=== PATIENT | female | born 1990 | race Caucasian/White ===

== ENCOUNTER 2017-08-20 06:11 | Inpatient (IN) | payer OTHER ==
[~2017-08-20] VITALS: Ht 160 cm; Wt 54.4 kg
[~2017-08-20 06:11] MED LIST: DOCUSATE SODIU100 M3 PO; IBUPROFEN800 M1 PO; PEPCID20 M1 PO; SERTRALINE HCL25 MG PO; ZOFRAN4 M2 SL
[2017-08-20] MEDS ORDERED: B-121000 MC3 PO (06:33)
--- NOTE | 2017-08-20 06:39 | ED GI/GU/ABDOMINAL COMPLAINT ---
History of Present Illness General Chief Complaint: General Adult Stated Complaint: "ABD PAIN, N+V+D" Source: patient Exam Limitations: no limitations Vital Signs & Intake/Output Vital Signs & Intake/Output Vital Signs Date Time Temp Pulse Resp B/P B/P Pulse O2 O2 Flow FiO2 Mean Ox Delivery Rate 08/20 1019 98.0 80 18 129/68 99 Room Air 08/20 0845 98.4 76 18 136/84 98 Room Air 08/20 0627 Room Air 08/20 0624 98.1 90 18 142/78 97 Room Air Allergies Coded Allergies: bee pollen (Severe, ANAPHYLAXIS 09/17/15) kiwi (Severe, ANAPHYLAXIS 09/17/15) Sulfa (Sulfonamide Antibiotics) (Intermediate, DIARRHEA 09/17/15) Reconcile Medications Cyanocobalamin (Vitamin B-12) (B-12) 1,000 MCG TABLET 1 TAB PO DAILY SUPPLEMENT (Reported) Triage Note: PT TO TRIAGE C/O N/V/D AND 11/28 STABBING DIFFUSE ABD PAIN X2 WEEKS. PT STATES HAS BEEN TAKING IMMODIUM WITH SOME EFFECT. LMP 07/30. Triage Nurses Notes Reviewed? yes ? n Is pt currently ? No Onset: Gradual Duration: day(s): Timing: recent history Quality/Severity: cramping Location: generalized abdomen Radiation: no radiation Activities at Onset: none Prior Abdominal Problems: similar symptoms Modifying Factors: Improves With: movement. Worsens With: palpation. Associated Symptoms: nausea/vomiting HPI: 27-[facility] with 2 week history of intermittent nausea vomiting abdominal pain and diarrhea. She states that the symptoms have gotten worse over the past week and last night she developed excessive vomiting and excessive watery diarrhea. (Guadalupe ARIAS,Yomi Devi) Past History Travel History Traveled to [place] past 21 day No Medical History Any Pertinent Medical History? 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 Yes (Guadalupe ARIAS,Yomi Devi) Review of Systems Review of Systems Constitutional: Reports: no symptoms. EENTM: Reports: no symptoms. Respiratory: Reports: no symptoms. Cardiovascular: Reports: no symptoms. GI: Reports: no symptoms. Genitourinary: Reports: no symptoms. Musculoskeletal: Reports: no symptoms. Skin: Reports: no symptoms. Neurological/Psychological: Reports: no symptoms. Hematologic/Endocrine: Reports: no symptoms. Immunologic/Allergic: Reports: no symptoms. All Other Systems: Reviewed and Negative (Guadalupe ARIAS,Yomi Devi) Physical Exam Physical Exam General Appearance: well developed/nourished, mild distress, moderate distress Head: atraumatic, normal appearance Eyes: Bilateral: normal appearance. Ears, Nose, Throat, Mouth: hearing grossly normal, moist mucous membrane Neck: normal inspection, supple, full range of motion, normal alignment Respiratory: normal breath sounds, chest non-tender, no respiratory distress Cardiovascular: regular rate/rhythm Gastrointestinal: normal bowel sounds, soft, diffuse tenderness Pelvic: normal external exam, normal speculum exam, normal bimanual exam Back: normal inspection, normal range of motion Extremities: normal range of motion Core Measures ACS in differential dx? No Sepsis Present: No Sepsis Focused Exam Completed? No (Guadalupe ARIAS,Yomi Devi) Progress Differential Diagnosis: abdominal pain, ovarian cysts, crohn's disease Plan of Care: Orders Procedure Date/time Status Nothing by Mouth 08/20 L Active Patient Data 08/20 1034 Active OXYGEN SETUP (GEN) 08/20 1016 Active Saline Lock 08/[address] in observation 08/20 1016 Active Vital Signs 08/20 1016 Active Activity/Ambulation 08/20 1016 Active Code Status 08/20 1016 Active URINALYSIS 08/20 0647 Complete LIPASE 08/20 0647 Complete HEPATIC FUNCTION PANEL 08/20 0647 Complete HUMAN BETA HCG SCREEN 08/20 0647 Complete CBC WITHOUT DIFFERENTIAL 08/20 0647 Complete BASIC METABOLIC PANEL 08/20 0647 Complete AMYLASE 08/20 0647 Complete Current Medications Sig/Vale Start time Last Medication Dose Stop Time Status Admin Lorazepam 1 MG ONCE ONE 08/20 1045 UNVr (Ativan) 08/20 1046 Morphine Sulfate 4 MG ONCE ONE 08/20 1045 UNVr (Morphine) 08/20 1046 Sodium Chloride 1,000 ML BOLUS ONE 08/20 1015 UNVr 08/20 (Normal Saline 0.9%) 08/20 1114 1019 Laboratory Tests 08/20/17 0649: Anion Gap 17 H, Estimated GFR > 60, BUN/Creatinine Ratio 20.0, Glucose 110 H, Calcium 9.4, Total Bilirubin 2.5 H, Direct Bilirubin 0.2, AST 19, ALT 16, Alkaline Phosphatase 70, Total Protein 8.0, Albumin 4.6, Amylase 91, Lipase 156, Total Beta HCG NEGATIVE, CBC w Diff NO MAN DIFF REQ, RBC 4.99, MCV 85.6, MCH 29.3, MCHC 34.2, RDW 12.8, MPV 7.9, Gran % 64.8, Lymphocytes % 25.2, Monocytes % 7.8, Eosinophils % 1.2, Basophils % 1.0, Absolute Granulocytes 5.1, Absolute Lymphocytes 2.0, Absolute Monocytes 0.6, Absolute Eosinophils 0.1, Absolute Basophils 0.1, Urine Color YEL, Urine Clarity CLEAR, Urine pH 6.0, Ur Specific [place] 1.015, Urine Protein NEG, Urine Ketones NEG, Urine Nitrite NEG, Urine Bilirubin NEG, Urine Urobilinogen 0.2, Ur Leukocyte Esterase SMALL H, Ur Microscopic SEDIMENT EXAMINED, Urine RBC RARE, Urine WBC 3-5 H, Ur Epithelial Cells MANY H, Urine Bacteria MANY H, Urine Mucus RARE, Urine Hemoglobin NEG, Urine Glucose NEG 08/20/17 0646: Urine Color Cancelled, Urine Clarity Cancelled, Urine pH Cancelled, Ur Specific [place] Cancelled, Urine Protein Cancelled, Urine Ketones Cancelled, Urine Nitrite Cancelled, Urine Bilirubin Cancelled, Urine Urobilinogen Cancelled, Ur Leukocyte Esterase Cancelled, Ur Microscopic Cancelled, Urine Hemoglobin Cancelled, Urine Glucose Cancelled Initial ED EKG: none Hand-Off Endorsed To: Art Song MD Endorsed Time: 0700 Pending: CT, labs, other (CLINICAL RESPONE ) (Guadalupe ARIAS,Yomi Devi) Diagnostic Imaging: Viewed by Me: CT Scan. Discussed w/RAD: CT Scan. Radiology Impression: 1. No inflammatory changes seen in abdomen or pelvis. No obstruction or ascites or fluid collection. 2. No biliary ductal dilatation. No hydronephrosis. 3. Bilateral sclerosis on the iliac side of the anterior sacroiliac joints. There is no sclerosis on the sacral side or erosive changes. 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 Comments: Updated with results of diagnostics. Pain recurred and patient became tearful no significant pathology is evident. Complains of nausea without vomiting, periumbilical abdominal discomfort with frequent loose watery stools over the last 2 weeks. No response to interventions, still complains of periumbilical pain. (Art Song MD) Departure Departure Time of Disposition: 0700 Disposition: STILL A PATIENT Condition: Stable Referrals: Umer ARIAS,Arnol Alonso (PCP/Family) Departure Forms: Customer Survey General Discharge Information (Yomi Butcher MD) Departure Clinical Impression Primary Impression: Intractable lower abdominal pain Secondary Impressions: Diarrhea Observation Note Spoke With: Radha ARIAS,Rome Alonso Physician Advisor Notified: RAJEEV ERNANDEZ DO Place Patient In: Non-ED OBS Care Area Rationale for Observation: My rational for observation is as follows intractable abdominal pain not responsive to multiple interventions requiring serial lab exam medication adjustment GI consultation continuing care discharge planning. (Art Song MD) Critical Care Note Critical Care Note Critical Care Time: 30-74 min (35) (Art Song MD) ED Attending Observation Initial Observation Note: I have seen and personally examined ARTURO FAULKNER on 08/20/17 at 0656. I agree with the current emergency department documentation. The disposition (admission or discharge) is uncertain at this time, she needs a period of observation for the following reason(s): The ED Nurse caring for this patient has been personally informed as to what the patient is being observed for. (Yomi Butcher MD)
[2017-08-20 07:09] LABS: ABSOLUTE BASOPHIL COUNT 0.1 /CUMM (0.0-0.2); ABSOLUTE EOSINOPHIL COUNT 0.1 /CUMM (0.0-0.7); ABSOLUTE GRANULOCYTE CT 5.1 /CUMM (1.4-6.5); ABSOLUTE MONOCYTE COUNT 0.6 /CUMM (0.10-0.60); EOSINOPHIL % 1.2 % (0-5); GRANULOCYTE % 64.8 % (42.2-75.2); HEMATOCRIT 42.7 % (37-47); MEAN CORPUSCULAR HGB 29.3 PG (27.0-31.0); MEAN CORPUSCULAR HGB CONC 34.2 G/DL (33.0-37.0); MEAN CORPUSCULAR VOLUME 85.6 FL (81.0-99.0); MEAN PLATELET VOLUME 7.9 FL (7.4-10.4); PLATELET COUNT 367 /CUMM (130-400); RBC DISTRIBUTION WIDTH 12.8 % (11.5-14.5); RED BLOOD CELL CT 4.99 /CUMM (4.20-5.40); WHITE BLOOD CELL COUNT 7.8 /CUMM (4.8-10.8)
--- NOTE | 2017-08-20 08:32 | CT SCAN REPORT ---
EXAMINATION: CT ABDOMEN AND PELVIS WITHOUT CONTRAST CLINICAL INFORMATION: Diffuse abdominal pain. Family history Crohn's. COMPARISON: CT abdomen and pelvis with IV contrast 05/31/2011 TECHNIQUE: Multidetector volumetric imaging was performed from the superior aspect of the liver through the pubic symphysis. Sagittal and coronal reformatted images were obtained on the technologist's workstation. No oral or IV contrast. DLP: 256 mGy-cm FINDINGS: LUNG BASES: Small stable benign pleural-based nodule again noted left posterior lateral base LIVER, GALLBLADDER, AND BILIARY TREE: The liver is within limits of normal size and smooth in contour and normal in attenuation. There is no focal hepatic parenchymal lesion or intrahepatic biliary ductal dilatation. The gallbladder is unremarkable with no evidence of radiopaque gallstones, gallbladder wall thickening, or obvious pericholecystic inflammatory changes. PANCREAS: Unremarkable. SPLEEN: Unremarkable. ADRENAL GLANDS: Unremarkable. KIDNEYS AND URETERS: The kidneys are normal in size, shape, and attenuation. No hydronephrosis, hydroureter, or calculi seen. No perinephric stranding. BLADDER: Unremarkable. GASTROINTESTINAL TRACT: There is no bowel obstruction or inflammatory changes seen in the bowel or mesentery. The appendix is not visualized with certainty. There are no inflammatory changes seen around the cecum or involving the terminal ileum. There is no ascites or fluid collection. ABDOMINAL WALL: No significant hernia is appreciated. LYMPH NODES: No lymphadenopathy. VASCULAR: Unremarkable. PELVIC VISCERA: Uterus measures approximately 4 x 6 x 9 cm. There is no adnexal mass or pelvic ascites. OSSEOUS STRUCTURES: There is bilateral sclerosis on the iliac side of the anterior sacroiliac joints. There is no sclerosis on the sacral side or erosive changes. IMPRESSION: 1. No inflammatory changes seen in abdomen or pelvis. No obstruction or ascites or fluid collection. 2. No biliary ductal dilatation. No hydronephrosis. 3. Bilateral sclerosis on the iliac side of the anterior sacroiliac joints. There is no sclerosis on the sacral side or erosive changes. 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
--- NOTE | 2017-08-20 11:57 | History & Physical ---
Anjana Perez 08/20/17 1157: General Information and HPI MD Statement: I have seen and personally examined ARTURO FAULKNER and documented this H&P. The patient is a 27 year old F who presented with a patient stated chief complaint of [DIARRHEA]. Source of Information: patient, family Exam Limitations: no limitations History of Present Illness: Patient is 27-year-old with no past medical history except anemia, came with the chief complaint of recurrent diarrhea. Patient states that her stomach has always been 'SENSITIVE' and since past 2 weeks she has been having recurrent watery diarrhea. She reports to having 4-6 episodes of loose stools accompanied by abdominal pain. Initially her stools were black in color and later have turned brownish green. She reports that her abdominal cramps is diffused and worse in the lower abdomen with frequent stabbing sensations. At worst she describes her pain as 9/10. Patient has taken [id number] Imodium and Pepto-Bismol with no relief. She has taken [id number] ibuprofen for abdominal pain. Patient does not follow-up with any casting director. Patient has also been vomiting since the onset of the symptoms. Initially she used to vomit up to 5 times a day which is improved. Last night patient ate a beef steak with hash brown, and since then her diarrhea worsened and she decided to come to ER. Of note, patient has a family history significant for Crohn's disease. Patient' s maternal aunt and first cousin have Crohn's disease. Patient reports of subjective fevers at home, and denies any infectious etiology of her abdominal pain/diarrhea such as no sick contacts, no outside food. Review of systems is positive for palpitations, chest pain and dizziness. Quit 3 weeks ago, ETOH yesterday 2 glasses of shayy/wine. 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 Ambulation: independent IADLs Independent: shopping, housework, finances, food prep, telephone, transportation , medication admin. Review of Systems Review of Systems Constitutional: Reports: see HPI. Exam & Diagnostic Data Last 24 Hrs of Vital Signs/I&O Vital Signs Date Time Temp Pulse Resp B/P B/P Pulse O2 O2 Flow FiO2 Mean Ox Delivery Rate 08/20 1019 98.0 80 18 129/68 99 Room Air 08/20 0845 98.4 76 18 136/84 98 Room Air 08/20 0627 Room Air 08/20 0624 98.1 90 18 142/78 97 Room Air Intake & Output 08/20 1600 08/20 0800 08/20 0000 Intake Total 1000 Output Total Balance 1000 Intake, IV 1000 Physical Exam General Appearance Alert, Oriented X3, Cooperative, Mild Distress Skin No Rashes, No Breakdown HEENT Atraumatic, PERRLA Neck Supple, No JVD Cardiovascular Normal S1, Normal S2 Lungs Clear to Auscultation, Normal Air Movement Abdomen Soft, diffusly tender Neurological Normal Speech, Normal Tone Extremities No Edema Last 24 Hrs of Labs/Sammy: Laboratory Tests 08/20/17 0649: Anion Gap 17 H, Estimated GFR > 60, BUN/Creatinine Ratio 20.0, Glucose 110 H, Calcium 9.4, Total Bilirubin 2.5 H, Direct Bilirubin 0.2, AST 19, ALT 16, Alkaline Phosphatase 70, Troponin I < 0.01, Total Protein 8.0, Albumin 4.6, Amylase 91, Lipase 156, Total Beta HCG NEGATIVE, CBC w Diff NO MAN DIFF REQ, RBC 4.99, MCV 85.6, MCH 29.3, MCHC 34.2, RDW 12.8, MPV 7.9, Gran % 64.8, Lymphocytes % 25.2, Monocytes % 7.8, Eosinophils % 1.2, Basophils % 1.0, Absolute Granulocytes 5.1, Absolute Lymphocytes 2.0, Absolute Monocytes 0.6, Absolute Eosinophils 0.1, Absolute Basophils 0.1, Urine Color YEL, Urine Clarity CLEAR, Urine pH 6.0, Ur Specific [place] 1.015, Urine Protein NEG, Urine Ketones NEG, Urine Nitrite NEG, Urine Bilirubin NEG, Urine Urobilinogen 0.2, Ur Leukocyte Esterase SMALL H, Ur Microscopic SEDIMENT EXAMINED, Urine RBC RARE, Urine WBC 3 -5 H, Ur Epithelial Cells MANY H, Urine Bacteria MANY H, Urine Mucus RARE, Urine Hemoglobin NEG, Urine Glucose NEG 08/20/17 0646: Urine Color Cancelled, Urine Clarity Cancelled, Urine pH Cancelled, Ur Specific [place] Cancelled, Urine Protein Cancelled, Urine Ketones Cancelled, Urine Nitrite Cancelled, Urine Bilirubin Cancelled, Urine Urobilinogen Cancelled, Ur Leukocyte Esterase Cancelled, Ur Microscopic Cancelled, Urine Hemoglobin Cancelled, Urine Glucose Cancelled Microbiology 08/20 1305 BLOOD: Blood Culture - RECD 08/20 1250 BLOOD: Blood Culture - RECD 08/20 1152 STOOL: Cryptosporidium Antigen - COLB 08/20 115 STOOL: Giardia Antigen (SAMMY) - COLB 08/20 115 STOOL: Clostridium difficile Toxin A & B - COLB 08/20 115 STOOL: Vibrio Culture - COLB 08/20 115 STOOL: Stool Culture - COLB Assessment/Plan Assessment: 27-year-old female who came in with chief complaint of recurrent diarrhea. Her family history significant for Crohn's disease. She denies any infectious etiology of her symptoms. Labs and vitals as above Abdominal CAT scan 1. No inflammatory changes seen in abdomen or pelvis. No obstruction or ascites or fluid collection. 2. No biliary ductal dilatation. No hydronephrosis. 3. Bilateral sclerosis on the iliac side of the anterior sacroiliac joints. There is no sclerosis on the sacral side or erosive changes. 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 Assessment and plan We will admit her to general medicine floor, start IV fluids and monitor closely. Will follow casting director recommendations. For recurrent diarrhea, with obtain stool culture, ova and parasite, C. difficile, although she denies any antibiotic use in the past 10 days. We will also obtain blood cultures given her subjective fevers and body chills. For nausea will give Tigan, for abdominal discomfort with put her on pain regimen with Tylenol. Toradol and dicyclomine. DVT prophylaxis subcutaneous Lovenox We will repeat CBC in BP tomorrow Patient is full code As Ranked By This Provider Problem List: 1. Diarrhea Core Measures/Misc (12/05) Acute Coronary Syndrome ACS Diagnosis: No Congestive Heart Failure Congestive Heart Failure Diagnosis No Cerebrovascular Accident CVA/TIA Diagnosis: No VTE (View Protocol) VTE Risk Factors No risk factors No Mechanical VTE Prophylaxis d/t N/A MechProphylax Ordered No VTE Pharm Prophylaxis d/t NA PharmProphylax ordered Sepsis (View protocol) Sepsis Present: No If YES complete Sepsis Event Note If YES complete Sepsis Event Note Rome Garcia 08/20/17 1453: General Information and HPI Allergies/Medications Home Med list Cyanocobalamin (Vitamin B-12) (B-12) 1,000 MCG TABLET 1 TAB PO DAILY SUPPLEMENT (Reported) Dicyclomine HCl 10 MG CAPSULE 1 CAP PO Q6P PRN STOMACH CRAMPS Core Measures/Misc (12/05) Sepsis (View protocol) If YES complete Sepsis Event Note If YES complete Sepsis Event Note Attending MD Review Statement Attending Statement Attending MD Statement: examined this patient, discuss w/resident/PA/METER TESTER, agreed w/resident/PA/METER TESTER, discussed with family, reviewed EMR data (avail), discussed with nursing Attending Assessment/Plan: 27 yr old female with no significant pmh being placed in observation for chronic diarrhea over the last 3 months with abdominal cramps . Her diarrhea has worsened over the last 2 weeks and prompted her to come to the ER for evaluation. In ER she had a CT scan done which showed- " No inflammatory changes seen in abdomen or pelvis. No obstruction or ascites or fluid collection." Pt says she is having 4-5 episdoes of diarrhea in the day which is loose and with abdominal cramping. Also associated nausea for 2 weeks and vomiting over the last day or so. Non bloody diarrhea and non bloody vomiting . No recent travel outside the country. No abx exposure. No sick contact. Does not eat uncooked meats. Was taking peptobismol and imodium but did not help. Has FH of crohns in cousin and maternal aunt. Plan- IV fluids. stool culture and stool for O & P, IV fluids, Stool for c diff, will get GI consult. D/w Dr Sarabia the case. d/w pt and family at bedside the care plan. Started on dicyclomine and will give prn pain meds. with nursing Attending Assessment/Plan: 27 yr old female with no significant pmh being placed in observation for chronic diarrhea over the last 3 months with abdominal cramps . Her diarrhea has worsened over the last 2 weeks and prompted her to come to the ER for evaluation. In ER she had a CT scan done which showed- " No inflammatory changes seen in abdomen or pelvis. No obstruction or ascites or fluid collection." Pt says she is having 4-5 episdoes of diarrhea in the day which is loose and with abdominal cramping. Also associated nausea for 2 weeks and vomiting over the last day or so. Non bloody diarrhea and non bloody vomiting . No recent travel outside the country. No abx exposure. No sick contact. Does not eat uncooked meats. Was taking peptobismol and imodium but did not help. Has FH of crohns in cousin and maternal aunt. Plan- IV fluids. stool culture and stool for O & P, IV fluids, Stool for c diff, will get GI consult. D/w Dr Sarabia the case. d/w pt and family at bedside the care plan. Started on dicyclomine and will give prn pain meds.
[2017-08-20 14:40] VITALS: BP 130/68
--- NOTE | 2017-08-20 22:17 | Cons- Gastroenterology ---
General Information and HPI Consulting Request Date of Consult: 08/20/17 Requested By: Rome Garcia MD Reason for Consult: Diarrhea, abdominal pain Allergies/Medications Allergies: Coded Allergies: bee pollen (Severe, ANAPHYLAXIS 09/17/15) kiwi (Severe, ANAPHYLAXIS 09/17/15) Sulfa (Sulfonamide Antibiotics) (Intermediate, DIARRHEA 09/17/15) Home Med List: Cyanocobalamin (Vitamin B-12) (B-12) 1,000 MCG TABLET 1 TAB PO DAILY SUPPLEMENT (Reported) Current Medications: Current Medications Sig/Vale Start time Last Medication Dose Route Stop Time Status Admin Acetaminophen 650 MG Q8P PRN 08/20 1300 AC 08/20 PO 2021 Acetaminophen 0 .STK-MED ONE 08/20 0701 DC IV Acetaminophen 1,000 MG ONCE ONE 08/20 0645 DC 08/20 N/A 1 UNIT IV 08/20 0659 0701 Belladonna Alkaloids/ 1 TAB Q4 HRS NEEDED PRN 08/20 2200 AC Phenobarbital PO Dicyclomine HCl 20 MG 4 TIMES/DAY 08/20 1345 DC 08/20 PO 1907 Diphenoxylate HCl/ 2.5 MG ONCE ONE 08/20 0915 DC 08/20 Atropine PO 08/20 0916 0923 Enoxaparin Sodium 40 MG DAILY 08/21 0900 AC SC Famotidine 0 .STK-MED ONE 08/20 0702 DC IV Famotidine 20 MG ONCE ONE 08/20 0700 DC 08/20 IV 08/20 0701 0701 Hyoscyamine 0.125 MG ONCE ONE 08/20 0915 DC 08/20 SL 08/20 0916 0923 Ketorolac 30 MG Q8P PRN 08/20 1400 AC 08/20 Tromethamine IV 2108 Ketorolac 30 MG Q8P PRN 08/20 1300 DC Tromethamine IM Ketorolac 0 .STK-MED ONE 08/20 0701 DC Tromethamine .ROUTE Ketorolac 30 MG ONCE ONE 08/20 0645 DC 08/20 Tromethamine IV 08/20 0646 0701 Lorazepam 0.5 MG ONCE ONE 08/20 2100 DC 08/20 IV 08/20 2101 2109 Lorazepam 0.5 MG ONE ONE 08/20 1500 DC 08/20 PO 08/20 1501 1558 Lorazepam 0 .STK-MED ONE 08/20 1047 DC .ROUTE Lorazepam 1 MG ONCE ONE 08/20 1045 DC / IV 08/20 1046 1043 Lorazepam 0 .STK-MED ONE 08/20 0919 DC .ROUTE Lorazepam 1 MG ONCE ONE 08/20 0915 DC / IV 08/20 0916 0919 Melatonin 5 MG AT BEDTIME NEED.. 08/20 2100 AC 08/20 PO 2108 Metoclopramide HCl 0 .STK-MED ONE 08/20 0920 DC .ROUTE Metoclopramide HCl 10 MG ONCE ONE 08/20 0915 DC / IV 08/20 0916 0919 Morphine Sulfate 0 .STK-MED ONE 08/20 1047 DC .ROUTE Morphine Sulfate 4 MG ONCE ONE 08/20 1045 DC / IV 08/20 1046 1043 Morphine Sulfate 4 MG ONCE ONE 08/20 0845 DC / IV 08/20 0846 0843 Morphine Sulfate 0 .STK-MED ONE 08/20 0839 DC .ROUTE Ondansetron HCl 0 .STK-MED ONE 08/20 0701 DC .ROUTE Ondansetron HCl 4 MG ONCE ONE 08/20 0700 DC 06/ IV 06/ 0701 0701 Sodium Chloride 1,000 ML Q10H 08/20 1245 AC 06/ IV 1349 Sodium Chloride 1,000 ML BOLUS ONE 08/20 1015 DC 06/ IV 06/ 1114 1019 Sodium Chloride 1,000 ML BOLUS ONE 08/20 0700 DC 06/ IV / 0759 0656 Trimethobenzamide HCl 200 MG 4 TIMES/DAY PRN 08/20 1245 AC IM Past History Travel History Traveled to [place] past 21 day No Medical History Blood Transfusion Hx: No Neurological: NONE EENT: NONE Cardiovascular: NONE Respiratory: NONE Gastrointestinal: NONE Hepatic: NONE Renal: NONE Musculoskeletal: NONE Psychiatric: NONE Endocrine: NONE Blood Disorders: anemia Cancer(s): NONE ADMISSIONS ASSISTANT/Reproductive: NONE Surgical History Surgical History: ovarian cyst Psychosocial History Smoking Status: Never Smoked ETOH Use: occasional use Functional Ability ADLs Independent: dressing, eating, toileting, bathing. Ambulation: independent IADLs Independent: shopping, housework, finances, food prep, telephone, transportation , medication admin. Exam & Diagnostic Data Vital Signs and I&O Vital Signs Date Time Temp Pulse Resp B/P B/P Pulse O2 O2 Flow FiO2 Mean Ox Delivery Rate 08/20 1440 98.4 76 20 130/68 98 08/20 1400 98 Room Air 08/20 1306 98.6 85 18 126/88 98 Room Air 08/20 1019 98.0 80 18 129/68 99 Room Air 08/20 0845 98.4 76 18 136/84 98 Room Air 08/20 0627 Room Air 08/20 0624 98.1 90 18 142/78 97 Room Air Intake & Output 08/20 04008/19 04008/18 040 Intake Total 1100 Output Total Balance 1100 Intake, IV 1100 Intake, Oral 0 Number 0 Bowel Movements Patient 120 lb Weight Physical Exam: Alert and oriented, normal cognition. Appears comfortable, in no distress. Skin warm and dry without lesion, rash, jaundice or stigmata of chronic liver disease. No adenopathy. Sclera anicteric. Oropharynx normal. Neck supple without thyromegaly or mass. Heart regular rhythm. Lungs clear. Abdomen is mildly distended and slightly tympanitic, with hyperactive bowel sounds; there is very mild diffuse tenderness, most pronounced in the left lower quadrant. There is no masses, fullness, organomegaly. Extremities without clubbing, cyanosis or edema, and with normal distal pulses. Results Pertinent Lab Results: Laboratory Tests 08/20 08/20 0649 0646 Chemistry Sodium (137 - 145 mmol/L) 142 Potassium (3.5 - 5.1 mmol/L) 4.6 Chloride (98 - 107 mmol/L) 105 Carbon Dioxide (22 - 30 mmol/L) 21 L Anion Gap (5 - 16) 17 H BUN (7 - 17 mg/dL) 14 Creatinine (0.5 - 1.0 mg/dL) 0.7 Estimated GFR (>60 ml/min) > 60 BUN/Creatinine Ratio (7 - 25 %) 20.0 Glucose (65 - 99 mg/dL) 110 H Calcium (8.4 - 10.2 mg/dL) 9.4 Total Bilirubin (0.2 - 1.3 mg/dL) 2.5 H Direct Bilirubin (< 0.4 mg/dL) 0.2 AST (14 - 36 U/L) 19 ALT (9 - 52 U/L) 16 Alkaline Phosphatase (<127 U/L) 70 Troponin I (< 0.11 ng/ml) < 0.01 Total Protein (6.3 - 8.2 g/dL) 8.0 Albumin (3.5 - 5.0 g/dL) 4.6 Amylase (30 - 110 U/L) 91 Lipase (23 - 300 U/L) 156 Total Beta HCG (NEGATIVE) NEGATIVE Hematology CBC w Diff NO MAN DIFF REQ WBC (4.8 - 10.8 /CUMM) 7.8 RBC (4.20 - 5.40 /CUMM) 4.99 Hgb (12.0 - 16.0 G/DL) 14.6 Hct (37 - 47 %) 42.7 MCV (81.0 - 99.0 FL) 85.6 MCH (27.0 - 31.0 PG) 29.3 MCHC (33.0 - 37.0 G/DL) 34.2 RDW (11.5 - 14.5 %) 12.8 Plt Count (130 - 400 /CUMM) 367 MPV (7.4 - 10.4 FL) 7.9 Gran % (42.2 - 75.2 %) 64.8 Lymphocytes % (20.5 - 51.1 %) 25.2 Monocytes % (1.7 - 9.3 %) 7.8 Eosinophils % (0 - 5 %) 1.2 Basophils % (0.0 - 2.0 %) 1.0 Absolute Granulocytes (1.4 - 6.5 /CUMM) 5.1 Absolute Lymphocytes (1.2 - 3.4 /CUMM) 2.0 Absolute Monocytes (0.10 - 0.60 /CUMM) 0.6 Absolute Eosinophils (0.0 - 0.7 /CUMM) 0.1 Absolute Basophils (0.0 - 0.2 /CUMM) 0.1 Urines Urine Color (YEL,AMB,STR) YEL Cancelled Urine Clarity (CLEAR) CLEAR Cancelled Urine pH (5.0 - 8.0) 6.0 Cancelled Ur Specific [place] (1.001 - 1.035) 1.015 Cancelled Urine Protein (NEG,<30 MG/DL) NEG Cancelled Urine Ketones (NEG) NEG Cancelled Urine Nitrite (NEG) NEG Cancelled Urine Bilirubin (NEG) NEG Cancelled Urine Urobilinogen (0.1 - 1.0 EU/dl) 0.2 Cancelled Ur Leukocyte Esterase (NEG) SMALL H Cancelled Ur Microscopic SEDIMENT EXAMINED Cancelled Urine RBC (0 - 5 /HPF) RARE Urine WBC (0 - 2 /HPF) 3-5 H Ur Epithelial Cells (NONE,FEW) MANY H Urine Bacteria (NEG/NONE) MANY H Urine Mucus (FEW,NONE) RARE Urine Hemoglobin (NEG) NEG Cancelled Urine Glucose (N MG/DL) NEG Cancelled Assessment/Plan Assessment/Recommendations: Acute diarrheal disorder including pain and nausea. This is superimposed on a more chronic, milder recurrent pain/diarrhea. The differential diagnosis includes irritable bowel syndrome with exacerbation (possible infection), and inflammatory bowel disease. Recommendations * Stool culture, vibrio, Yersinia, C. difficile toxin, lactoferrin * Check sedimentation rate, C-reactive protein, B12 * Clear liquid diet * 1 tab by mouth every 4 hours * Judicious use of narcotics for breakthrough pain * Serial abdominal examinations * Abdominal x-ray with worsening distention * Probable colonoscopy after the weekend Copies To: Umer ARIAS,Arnol Alonso Consult Acknowledgment - Thank you for your consult request.
[2017-08-20 22:20] VITALS: BP 113/77
[2017-08-21 06:54] VITALS: BP 103/72
[2017-08-21 08:16] LABS: ABSOLUTE BASOPHIL COUNT 0.1 /CUMM (0.0-0.2); ABSOLUTE EOSINOPHIL COUNT 0.4 /CUMM (0.0-0.7); ABSOLUTE GRANULOCYTE CT 2.7 /CUMM (1.4-6.5); ABSOLUTE LYMPH COUNT 2.8 /CUMM (1.2-3.4); ABSOLUTE MONOCYTE COUNT 0.5 /CUMM (0.10-0.60); EOSINOPHIL % 6.1 % (0-5); GRANULOCYTE % 41.5 % (42.2-75.2); MEAN CORPUSCULAR HGB 29.9 PG (27.0-31.0); MEAN CORPUSCULAR HGB CONC 34.7 G/DL (33.0-37.0); MEAN CORPUSCULAR VOLUME 86.2 FL (81.0-99.0); MEAN PLATELET VOLUME 7.7 FL (7.4-10.4); PLATELET COUNT 240 /CUMM (130-400); RBC DISTRIBUTION WIDTH 12.8 % (11.5-14.5); RED BLOOD CELL CT 3.95 /CUMM (4.20-5.40); WHITE BLOOD CELL COUNT 6.4 /CUMM (4.8-10.8)
--- NOTE | 2017-08-21 08:26 | PN- Housestaff ---
See Addendum Subjective Follow-up For: Recurrent diarrhea Nausea Abdominal pain and distention Subjective: Patient seen and examined. She feels much better today but says that she has been feeling restless. She only had 2 episodes of diarrhea since her admission to the hospital. Her abdomen looks less distended. Her nausea has improved. Patient was evaluated by GI yesterday, if her abdominal pain/distention worsens, can get abdominal x-ray. Review of Systems Constitutional: Reports: see HPI. Objective Last 24 Hrs of Vital Signs/I&O Vital Signs Date Time Temp Pulse Resp B/P B/P Pulse O2 O2 Flow FiO2 Mean Ox Delivery Rate 08/21 0654 98.7 86 18 103/72 98 Room Air 08/20 2220 98.3 83 18 113/77 100 Room Air 08/20 1440 98.4 76 20 130/68 98 / 1400 98 Room Air / 1306 98.6 85 18 126/88 98 Room Air 08/20 1019 98.0 80 18 129/68 99 Room Air Intake & Output 08/21 1600 08/21 0800 08/21 0000 Intake Total 840 300 Output Total Balance 840 300 Intake, IV 600 300 Intake, Oral 240 0 Number 1 0 Bowel Movements Physical Exam General Appearance: Alert, Oriented X3, Cooperative, Mild Distress Skin: No Rashes Skin Temp/Moisture Exam: Warm/Dry HEENT: Atraumatic Neck: Supple Cardiovascular: Normal S1, Normal S2 Lungs: Clear to Auscultation, Normal Air Movement Abdomen: Soft, No Tenderness Extremities: No Edema Current Medications: Current Medications Sig/Vale Start time Last Medication Dose Route Stop Time Status Admin Acetaminophen 650 MG Q8P PRN 08/20 1300 AC 08/20 PO 2021 Belladonna Alkaloids/ 1 TAB Q4 HRS NEEDED PRN 08/20 2200 AC 08/21 Phenobarbital PO 0350 Dicyclomine HCl 20 MG 4 TIMES/DAY 08/20 1345 DC 08/20 PO 1907 Diphenoxylate HCl/ 2.5 MG ONCE ONE 08/20 0815 DC 08/20 Atropine PO 08/21 915 0923 Enoxaparin Sodium 40 MG DAILY 08/21 0900 AC 08/21 SC 0823 Hyoscyamine 0.125 MG ONCE ONE 08/20 0815 DC 08/20 SL 06/02 0916 0923 Ketorolac 30 MG Q8P PRN 08/20 1400 AC 08/21 Tromethamine IV 0823 Ketorolac 30 MG Q8P PRN 08/20 1300 DC Tromethamine IM Lorazepam 0.5 MG ONCE ONE 08/20 2100 DC 08/20 IV 08/20 2101 2109 Lorazepam 0.5 MG ONE ONE 08/20 1500 DC 08/20 PO 08/20 1501 1558 Lorazepam 0 .STK-MED ONE 08/20 1047 DC .ROUTE Lorazepam 1 MG ONCE ONE 08/20 1045 DC 08/20 IV 08/20 1046 1043 Lorazepam 0 .STK-MED ONE 08/20 0919 DC .ROUTE Lorazepam 1 MG ONCE ONE 08/20 0915 DC 08/20 IV 08/20 0916 0919 Melatonin 5 MG AT BEDTIME NEED.. 08/20 2100 AC 08/20 PO 2108 Metoclopramide HCl 0 .STK-MED ONE 08/20 0920 DC .ROUTE Metoclopramide HCl 10 MG ONCE ONE 08/20 0915 DC 08/20 IV 08/20 0916 0919 Morphine Sulfate 0 .STK-MED ONE 08/20 1047 DC .ROUTE Morphine Sulfate 4 MG ONCE ONE 08/20 1045 DC 08/20 IV 08/20 1046 1043 Sodium Chloride 1,000 ML Q10H 08/20 1245 AC 08/20 IV 2343 Sodium Chloride 1,000 ML BOLUS ONE 08/20 1015 DC 08/20 IV 08/20 1114 1019 Trimethobenzamide HCl 200 MG 4 TIMES/DAY PRN 08/20 1245 AC 08/21 IM 0823 Last 24 Hrs of Lab/Sammy Results Last 24 Hrs of Labs/Mics: Laboratory Tests 08/21/17 0744: Anion Gap 5, Estimated GFR > 60, BUN/Creatinine Ratio 14.3, Total Bilirubin 2.3 H, Direct Bilirubin 0, AST 36, ALT 37, Alkaline Phosphatase 46, C-React Prot High Sens Pending, Total Protein 5.6 L, Albumin 3.1 L, Vitamin B12 Pending, CBC w Diff NO MAN DIFF REQ, RBC 3.95 L, MCV 86.2, MCH 29.9, MCHC 34.7, RDW 12.8 , MPV 7.7, Gran % 41.5 L, Lymphocytes % 43.7, Monocytes % 7.7, Eosinophils % 6.1 H, Basophils % 1.0, Absolute Granulocytes 2.7, Absolute Lymphocytes 2.8, Absolute Monocytes 0.5, Absolute Eosinophils 0.4, Absolute Basophils 0.1, ESR Westergren Pending Microbiology 08/21 329 STOOL: Yersinia Culture - CAN Cancelled: MERGED 08/21 329 STOOL: Cryptosporidium Antigen - COLB 08/21 329 STOOL: Giardia Antigen (SAMMY) - COLB 08/21 329 STOOL: Clostridium difficile Toxin A & B - RECD 08/21 329 STOOL: Vibrio Culture - RECD 08/21 329 STOOL: Yersinia Culture - RECD 08/21 329 STOOL: Stool Culture - RECD 08/20 1305 BLOOD: Blood Culture - RECD 08/20 1250 BLOOD: Blood Culture - RECD Assessment/Plan Assessment: 27-year-old female who came in with chief complaint of recurrent diarrhea. Her family history significant for Crohn's disease. She denies any infectious etiology of her symptoms. Labs and vitals as above Abdominal CAT scan 1. No inflammatory changes seen in abdomen or pelvis. No obstruction or ascites or fluid collection. 2. No biliary ductal dilatation. No hydronephrosis. 3. Bilateral sclerosis on the iliac side of the anterior sacroiliac joints. There is no sclerosis on the sacral side or erosive changes. 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 Assessment and plan Patient is doing well, the abdominal distention has improved, we can DC the IV fluids now and monitor her closely as she is taking clear liquid diet. Lamp Assembler on board, will follow-up stool culture, ova parasite, C. difficile, Yersinia, Vibrio, and lactoferritin. Her blood cultures are pending. For nausea will continue Tigan, for abdominal discomfort wull continue with , Toradol and tylenol. DVT prophylaxis subcutaneous Lovenox We will repeat CBC tomorrow due to a fall in HB, and will get stool guaiac Patient is full code Problem List: 1. Anxiety disorder Pain Ratin Pain Location: abdomen Pain Goal: Pain 4 or less Pain Plan: Toradol, Tylenol, Tomorrow's Labs & Rationales: cbc to check hb
--- NOTE | 2017-08-21 12:39 | PN- Gastroenterology ---
Assessment/Plan GI Assessment/Recommendations: Acute diarrheal disorder including pain and nausea. This is superimposed on a more chronic, milder recurrent pain/diarrhea. The differential diagnosis includes irritable bowel syndrome with exacerbation (possible infection), and inflammatory bowel disease. Minimal improvement in hospital. Recommendations * Await stool culture, vibrio, Yersinia, C. difficile toxin, lactoferrin * Check C-reactive protein * Advance to low fiber diet for today; resume clear liquid diet in the morning * Continue 1 tab by mouth every 4 hours * Judicious use of narcotics for breakthrough pain * Serial abdominal examinations * If stool evaluation is negative tomorrow, and symptoms persist, will consider colonoscopy on Tuesday * Psychiatry evaluation with inpatient POOL CLEANER/PA application consultant. Discussed with the patient's fiance; there seems to be a large interplay between the patient's anxiety (and perhaps other disorders) and her GI symptomatology. Subjective Subjective: Persistent pain, coming and going. Not as much nausea, and indeed the patient is hungry and wishes to eat. Still with diarrhea, nonbloody. Review of Systems: Without change Objective Vital Signs and I&Os Vital Signs Date Time Temp Pulse Resp B/P B/P Pulse O2 O2 Flow FiO2 Mean Ox Delivery Rate 08/21 0654 98.7 86 18 103/72 98 Room Air 08/20 2220 98.3 83 18 113/77 100 Room Air 08/20 1440 98.4 76 20 130/68 98 / 1400 98 Room Air / 1306 98.6 85 18 126/88 98 Room Air Intake & Output 08/21 1600 08/21 0400 08/20 1600 08/20 0400 08/19 1600 08/19 0400 Intake Total 142 034 5989 Output Total Balance 080 475 0683 Intake, IV 481 578 3497 Intake, Oral 240 0 0 Number 1 0 0 Bowel Movements Patient 120 lb Weight Physical Exam: Examination without change. Abdomen with mild tenderness. Current Medications: Current Medications Sig/Vale Start time Last Medication Dose Route Stop Time Status Admin Acetaminophen 650 MG Q8P PRN 08/20 1300 AC 08/20 PO 2020 Belladonna Alkaloids/ 1 TAB Q4 HRS NEEDED PRN 08/20 2200 AC 08/21 Phenobarbital PO 09 Dicyclomine HCl 20 MG 4 TIMES/DAY 08/20 1345 DC 08/20 PO 190 Enoxaparin Sodium 40 MG DAILY 08/21 0900 AC 08/21 SC 0823 Ketorolac 30 MG Q8P PRN 08/20 1400 AC 08/21 Tromethamine IV 0823 Ketorolac 30 MG Q8P PRN 08/20 1300 DC Tromethamine IM Lorazepam 0.5 MG ONE ONE 08/21 0945 DC 08/21 PO 08/21 0946 0944 Lorazepam 0.5 MG ONCE ONE 08/20 2100 DC 08/20 IV 08/20 2101 2109 Lorazepam 0.5 MG ONE ONE 08/20 1500 DC 08/20 PO 08/20 1501 1558 Melatonin 5 MG AT BEDTIME NEED.. 08/20 2100 AC 08/20 PO 2108 Sodium Chloride 1,000 ML Q10H 08/20 1245 DC 08/20 IV 2343 Trimethobenzamide HCl 200 MG 4 TIMES/DAY PRN 08/20 1245 AC 08/21 IM 0823 Results Pertinent Lab Results: Laboratory Tests 08/21 08/21 0930 0744 Chemistry Sodium (137 - 145 mmol/L) 139 Potassium (3.5 - 5.1 mmol/L) 4.1 Chloride (98 - 107 mmol/L) 109 H Carbon Dioxide (22 - 30 mmol/L) 25 Anion Gap (5 - 16) 5 BUN (7 - 17 mg/dL) 10 Creatinine (0.5 - 1.0 mg/dL) 0.7 Estimated GFR (>60 ml/min) > 60 BUN/Creatinine Ratio (7 - 25 %) 14.3 Total Bilirubin (0.2 - 1.3 mg/dL) 2.3 H Direct Bilirubin (< 0.4 mg/dL) 0 AST (14 - 36 U/L) 36 ALT (9 - 52 U/L) 37 Alkaline Phosphatase (<127 U/L) 46 C-React Prot High Sens (1.0 - 3.0 mg/L) 0.2 L Total Protein (6.3 - 8.2 g/dL) 5.6 L Albumin (3.5 - 5.0 g/dL) 3.1 L Vitamin B12 (239 - 931 pg/mL) 515 Hematology CBC w Diff NO MAN DIFF REQ WBC (4.8 - 10.8 /CUMM) 6.4 RBC (4.20 - 5.40 /CUMM) 3.95 L Hgb (12.0 - 16.0 G/DL) 11.8 L Hct (37 - 47 %) 34.0 L MCV (81.0 - 99.0 FL) 86.2 MCH (27.0 - 31.0 PG) 29.9 MCHC (33.0 - 37.0 G/DL) 34.7 RDW (11.5 - 14.5 %) 12.8 Plt Count (130 - 400 /CUMM) 240 MPV (7.4 - 10.4 FL) 7.7 Gran % (42.2 - 75.2 %) 41.5 L Lymphocytes % (20.5 - 51.1 %) 43.7 Monocytes % (1.7 - 9.3 %) 7.7 Eosinophils % (0 - 5 %) 6.1 H Basophils % (0.0 - 2.0 %) 1.0 Absolute Granulocytes (1.4 - 6.5 /CUMM) 2.7 Absolute Lymphocytes (1.2 - 3.4 /CUMM) 2.8 Absolute Monocytes (0.10 - 0.60 /CUMM) 0.5 Absolute Eosinophils (0.0 - 0.7 /CUMM) 0.4 Absolute Basophils (0.0 - 0.2 /CUMM) 0.1 ESR Westergren (0 - 20 MM) 2 Other Body Source Stool Lactoferrin Pending 08/20 08/20 0647 0648 Chemistry Sodium (137 - 145 mmol/L) 142 Potassium (3.5 - 5.1 mmol/L) 4.6 Chloride (98 - 107 mmol/L) 105 Carbon Dioxide (22 - 30 mmol/L) 21 L Anion Gap (5 - 16) 17 H BUN (7 - 17 mg/dL) 14 Creatinine (0.5 - 1.0 mg/dL) 0.7 Estimated GFR (>60 ml/min) > 60 BUN/Creatinine Ratio (7 - 25 %) 20.0 Glucose (65 - 99 mg/dL) 110 H Calcium (8.4 - 10.2 mg/dL) 9.4 Total Bilirubin (0.2 - 1.3 mg/dL) 2.5 H Direct Bilirubin (< 0.4 mg/dL) 0.2 AST (14 - 36 U/L) 19 ALT (9 - 52 U/L) 16 Alkaline Phosphatase (<127 U/L) 70 Troponin I (< 0.11 ng/ml) < 0.01 Total Protein (6.3 - 8.2 g/dL) 8.0 Albumin (3.5 - 5.0 g/dL) 4.6 Amylase (30 - 110 U/L) 91 Lipase (23 - 300 U/L) 156 Total Beta HCG (NEGATIVE) NEGATIVE Hematology CBC w Diff NO MAN DIFF REQ WBC (4.8 - 10.8 /CUMM) 7.8 RBC (4.20 - 5.40 /CUMM) 4.99 Hgb (12.0 - 16.0 G/DL) 14.6 Hct (37 - 47 %) 42.7 MCV (81.0 - 99.0 FL) 85.6 MCH (27.0 - 31.0 PG) 29.3 MCHC (33.0 - 37.0 G/DL) 34.2 RDW (11.5 - 14.5 %) 12.8 Plt Count (130 - 400 /CUMM) 367 MPV (7.4 - 10.4 FL) 7.9 Gran % (42.2 - 75.2 %) 64.8 Lymphocytes % (20.5 - 51.1 %) 25.2 Monocytes % (1.7 - 9.3 %) 7.8 Eosinophils % (0 - 5 %) 1.2 Basophils % (0.0 - 2.0 %) 1.0 Absolute Granulocytes (1.4 - 6.5 /CUMM) 5.1 Absolute Lymphocytes (1.2 - 3.4 /CUMM) 2.0 Absolute Monocytes (0.10 - 0.60 /CUMM) 0.6 Absolute Eosinophils (0.0 - 0.7 /CUMM) 0.1 Absolute Basophils (0.0 - 0.2 /CUMM) 0.1 Toxicology Urine Opiates Screen (>2000 NG/ML) < 100 Methadone Screen (>300 NG/ML) < 40 Barbiturate Screen (>200 NG/ML) < 60 Ur Phencyclidine Scrn (>25 NG/ML) < 6.00 Amphetamines Screen (>1000 NG/ML) < 100 U Benzodiazepines Scrn (>200 NG/ML) 431 H Urine Cocaine Screen (>300 NG/ML) < 50 Urine Cannabis Screen (>50 NG/ML) < 5.00 Urines Urine Color (YEL,AMB,STR) YEL Cancelled Urine Clarity (CLEAR) CLEAR Cancelled Urine pH (5.0 - 8.0) 6.0 Cancelled Ur Specific [place] (1.001 - 1.035) 1.015 Cancelled Urine Protein (NEG,<30 MG/DL) NEG Cancelled Urine Ketones (NEG) NEG Cancelled Urine Nitrite (NEG) NEG Cancelled Urine Bilirubin (NEG) NEG Cancelled Urine Urobilinogen (0.1 - 1.0 EU/dl) 0.2 Cancelled Ur Leukocyte Esterase (NEG) SMALL H Cancelled Ur Microscopic SEDIMENT EXAMINED Cancelled Urine RBC (0 - 5 /HPF) RARE Urine WBC (0 - 2 /HPF) 3-5 H Ur Epithelial Cells (NONE,FEW) MANY H Urine Bacteria (NEG/NONE) MANY H Urine Mucus (FEW,NONE) RARE Urine Hemoglobin (NEG) NEG Cancelled Urine Glucose (N MG/DL) NEG Cancelled Imaging/Other Studies: Stool pending for culture, C. difficile toxin, lactoferrin, Yersinia, vibrio, Giardia/Cryptosporidium Normal ESR CRP was not ordered correctly (highly sensitive CRP was obtained)
[2017-08-21 14:49] VITALS: BP 112/60
[2017-08-21 21:44] VITALS: BP 102/58
[2017-08-22 07:00] VITALS: BP 106/70
--- NOTE | 2017-08-22 07:49 | PN- Housestaff ---
Lane ARIAS,Christin 08/22/17 0748: Subjective Follow-up For: Recurrent Chronic diarrhea Subjective: Seen and examined. Appears to be quite anxious. Complaining of abdominal tenderness and continues to have loose diarrheal episodes Review of Systems Constitutional: Reports: see HPI. Objective Last 24 Hrs of Vital Signs/I&O Vital Signs Date Time Temp Pulse Resp B/P B/P Pulse O2 O2 Flow FiO2 Mean Ox Delivery Rate 08/22 1709 89 18 120/84 99 Room Air / 1400 98.0 86 20 124/74 99 Room Air / 0700 98.2 80 18 106/70 99 Room Air / 2144 98.1 78 20 102/58 98 Room Air Intake & Output 08/22 1600 08/22 0800 08/22 0000 Intake Total 610 360 480 Output Total Balance 610 360 480 Intake, IV 10 Intake, Oral 600 360 480 Number 2 Bowel Movements Patient 120 lb Weight Physical Exam General Appearance: Mild Distress Skin: No Rashes Cardiovascular: Normal S1, Normal S2 Lungs: Clear to Auscultation Abdomen: Normal Bowel Sounds, Soft, diffuse tenderness Current Medications: Current Medications Sig/Vale Start time Last Medication Dose Route Stop Time Status Admin Acetaminophen 650 MG .STK-MED ONE 08/22 1951 DC PO 08/21 195 Acetaminophen 650 MG Q8P PRN 08/20 1300 AC 08/22 PO 1209 Belladonna Alkaloids/ 1 TAB Q4 HRS NEEDED PRN 08/20 2200 AC 08/22 Phenobarbital PO 0901 Enoxaparin Sodium 40 MG DAILY 08/21 0900 AC 08/22 SC 0901 Ketorolac 30 MG .STK-MED ONE 08/22 0247 DC Tromethamine IM 08/22 0248 Ketorolac 30 MG Q8P PRN 08/20 1400 AC 08/22 Tromethamine IV 1609 Lorazepam 0.5 MG ONE ONE 08/22 1700 DC 08/22 PO 08/22 1701 1715 Lorazepam 0.5 MG ONE ONE 08/21 2014 DC 08/21 PO 08/21 Melatonin 5 MG AT BEDTIME NEED.. 08/20 2100 AC 08/20 PO 2108 Polyethylene Glycol 1 GAL .[AFTER DINNER] 08/22 1815 UNVr PO Trimethobenzamide HCl 200 MG 4 TIMES/DAY PRN 08/20 1245 AC 08/22 IM 1039 Last 24 Hrs of Lab/Sammy Results Last 24 Hrs of Labs/Mics: Laboratory Tests 08/22/17 0750: CBC w Diff NO MAN DIFF REQ, RBC 4.38, MCV 86.6, MCH 29.9, MCHC 34.5, RDW 12.7, MPV 8.0, Gran % 57.3, Lymphocytes % 28.6, Monocytes % 7.7, Eosinophils % 5.8 H, Basophils % 0.6, Absolute Granulocytes 4.2, Absolute Lymphocytes 2.1, Absolute Monocytes 0.6, Absolute Eosinophils 0.4, Absolute Basophils 0 Assessment/Plan Assessment: he patient is a 27-year-old female with no past month significant past medical history who presented to [place] ED on 08/20 for evaluation of diarrhea. The patient has chronic ongoing diarrhea for past 6 months to 1 year. Recently the diarrhea has worsened with increased episodes up to 4-6 per day associated with nausea and abdominal cramping sensation. Has tried [id number] Imodium and Pepto-Bismol without any relief. The patient has history of coronary disease in maternal aunt and cousins. Denies any sick contacts and any take-out food. She has been admitted to general medicine floor for cute diarrheal disorder including pain and nausea. This is superimposed on a more chronic, milder recurrent pain/diarrhea. The differential diagnosis includes irritable bowel syndrome with exacerbation (possible infection), and inflammatory bowel disease. C diff negative, Giardia and cryptosporidium antigen is also negative. Stool culture shows mixed growth so far, Vibrio no growth so far, Yersenia culture no growth so far and stool is negative for SHIGA Toxin. ESR and C-reactive protein WNL. B12 WNL Since no infectious pathology has been identified we are going to proceed with colonoscopy. * Nothing by mouth at midnight tonight for colonoscopy in the morning * Bowel Prep with GoLYTELY * Patient is very anxious and will benefit from psychiatric evaluation consult has been placed. * GI On board please follow-up the recommendations * Continue 1 tab by mouth every 4 hours * Stool lactoferrin is pending * Advance diet as per GI recommendations after colonoscopy * Psych and follow-up on discharge Problem List: 1. Diarrhea Pain Ratin Pain Location: abd Pain Goal: Pain 4 or less Pain Plan: prn Tomorrow's Labs & Rationales: yosi Pena MD,Finesse 08/22/17 1355: Attending MD Review Statement Attending Statement Attending MD Statement: examined this patient, discuss w/resident/PA/SECRETARY SPECIALIST, agreed w/resident/PA/SECRETARY SPECIALIST, reviewed EMR data (avail), discussed with nursing, discussed with case mgmt, amended to note Attending Assessment/Plan: Patient seen and examined. Still complaining of loose stools. Still complaining of abdominal cramping. Reports that the cramping improves after moving her bowels. Denies any blood in stools. She fortunately remains afebrile hemodynamically stable. Stool test is currently negative for C. difficile, Cryptosporidium and Giardia. On examination she appears in mild discomfort. Abdomen is done distended, soft mild diffuse tenderness with no rebound or guarding. Normal bowel sounds. Recommendations: -Patient is scheduled to undergo colonoscopy tomorrow for further evaluation of the etiology of her diarrhea and abdominal cramping. Irritable bowel syndrome is within the differential part of the GI service. -Recommend evaluation by the psychiatric service. Continue anxiolytic regimen pending evaluation by the psychiatry service. -Continue current pain regimen.
[2017-08-22 08:38] LABS: ABSOLUTE BASOPHIL COUNT 0 /CUMM (0.0-0.2); ABSOLUTE EOSINOPHIL COUNT 0.4 /CUMM (0.0-0.7); ABSOLUTE GRANULOCYTE CT 4.2 /CUMM (1.4-6.5); ABSOLUTE LYMPH COUNT 2.1 /CUMM (1.2-3.4); ABSOLUTE MONOCYTE COUNT 0.6 /CUMM (0.10-0.60); BASOPHIL % 0.6 % (0.0-2.0); EOSINOPHIL % 5.8 % (0-5); GRANULOCYTE % 57.3 % (42.2-75.2); MEAN CORPUSCULAR HGB 29.9 PG (27.0-31.0); MEAN CORPUSCULAR HGB CONC 34.5 G/DL (33.0-37.0); MEAN CORPUSCULAR VOLUME 86.6 FL (81.0-99.0); PLATELET COUNT 271 /CUMM (130-400); RBC DISTRIBUTION WIDTH 12.7 % (11.5-14.5); RED BLOOD CELL CT 4.38 /CUMM (4.20-5.40); WHITE BLOOD CELL COUNT 7.4 /CUMM (4.8-10.8)
[2017-08-22 14:00] VITALS: BP 124/74
[2017-08-22 17:09] VITALS: BP 120/84
--- NOTE | 2017-08-22 18:27 | Transfer of Care Summary ---
Hospital Course Course Hospital Course: The patient is a 27-year-old female with no past month significant past medical history who presented to [place] ED on 08/20 for evaluation of diarrhea. The patient has chronic ongoing diarrhea for past 6 months to 1 year. Recently the diarrhea has worsened with increased episodes up to 4-6 per day associated with nausea and abdominal cramping sensation. Has tried [id number] Imodium and Pepto-Bismol without any relief. The patient has history of coronary disease in maternal aunt and cousins. Denies any sick contacts and any take-out food. She has been admitted to general medicine floor for acute diarrheal disorder including pain and nausea. This is superimposed on a more chronic, milder recurrent pain/diarrhea. The differential diagnosis includes irritable bowel syndrome with exacerbation (possible infection), and inflammatory bowel disease. C diff negative, Giardia and cryptosporidium antigen is also negative. Stool culture shows mixed growth so far, Vibrio no growth so far, Yersenia culture no growth so far and stool is negative for SHIGA Toxin. ESR and C-reactive protein WNL. B12 WNL Since no infectious pathology has been identified we are going to proceed with colonoscopy. * Nothing by mouth at midnight tonight for colonoscopy in the morning * Bowel Prep with GoLYTELY * Patient is very anxious and will benefit from psychiatric evaluation consult has been placed. * GI On board please follow-up the recommendations * Continue 1 tab by mouth every 4 hours * Stool lactoferrin is pending * Advance diet as per GI recommendations after colonoscopy * Psych and follow-up on discharge Assessment/Plan: na
--- NOTE | 2017-08-22 19:28 | PN- Gastroenterology ---
Assessment/Plan GI Assessment/Recommendations: Acute diarrheal disorder including pain and nausea. This is superimposed on a more chronic, milder recurrent pain/diarrhea. The differential diagnosis includes irritable bowel syndrome with exacerbation (possible infection), and inflammatory bowel disease. Gradual improvement in hospital. Now also complaining of heartburn/chest pain. Recommendations * Await final results of stool culture, vibrio, Yersinia, C. difficile toxin; await lactoferrin * Please check C-reactive protein * Continue 1 tab by mouth every 4 hours * Judicious use of narcotics for breakthrough pain * Serial abdominal examinations * EGD/colonoscopy tomorrow. Give 2 L of GoLYTELY over 2 hours tonight, and repeat between 7 and 9 AM tomorrow morning. Make nothing by mouth after 9 AM tomorrow morning. * Psychiatry evaluation with inpatient PONY RIDE ATTENDANT/PA [employer] consultant. Discussed with the patient's fiance; there seems to be a large interplay between the patient's anxiety (and perhaps other disorders) and her GI symptomatology. Subjective Subjective: Persistent pain. Improvement in diarrhea. Anxiety. Objective Vital Signs and I&Os Vital Signs Date Time Temp Pulse Resp B/P B/P Pulse O2 O2 Flow FiO2 Mean Ox Delivery Rate 08/22 1709 89 18 120/84 99 Room Air / 1400 98.0 86 20 124/74 99 Room Air /04 0700 98.2 80 18 106/70 99 Room Air / 2144 98.1 78 20 102/58 98 Room Air Intake & Output 08/22 1600 08/22 0400 / 1600 08/21 0400 08/20 1600 08/20 0400 Intake Total 625 833 6717 300 1100 Output Total Balance 644 213 1972 300 1100 Intake, IV 10 039 884 3358 Intake, Oral 960 480 840 0 0 Number 2 4 0 0 Bowel Movements Patient 120 lb 120 lb Weight Physical Exam: Abdomen mildly tender Current Medications: Current Medications Sig/Vale Start time Last Medication Dose Route Stop Time Status Admin Acetaminophen 650 MG .STK-MED ONE 08/22 1951 DC PO 08/21 1952 Acetaminophen 650 MG Q8P PRN 08/20 1300 AC 08/22 PO 1209 Belladonna Alkaloids/ 1 TAB Q4 HRS NEEDED PRN 08/20 2200 AC 08/22 Phenobarbital PO 0901 Enoxaparin Sodium 40 MG DAILY 08/21 0900 AC 08/22 SC 0901 Ketorolac 30 MG .STK-MED ONE 08/22 0247 DC Tromethamine IM 08/22 0248 Ketorolac 30 MG Q8P PRN 08/20 1400 AC 08/22 Tromethamine IV 1609 Lorazepam 0.5 MG ONE ONE 08/22 1700 DC 08/22 PO 08/22 1701 1715 Lorazepam 0.5 MG ONE ONE 08/21 2014 DC 08/21 PO 08/21 Melatonin 5 MG AT BEDTIME NEED.. 08/20 2100 AC 08/20 PO 210 Polyethylene Glycol 1 GAL ONCE ONE 08/22 181 DC PO 08/22 181 Trimethobenzamide HCl 200 MG 4 TIMES/DAY PRN 08/20 1245 AC 08/22 IM 1039 Results Pertinent Lab Results: Laboratory Tests 08/22 08/21 0750 0930 Hematology CBC w Diff NO MAN DIFF REQ WBC (4.8 - 10.8 /CUMM) 7.4 RBC (4.20 - 5.40 /CUMM) 4.38 Hgb (12.0 - 16.0 G/DL) 13.1 Hct (37 - 47 %) 38.0 MCV (81.0 - 99.0 FL) 86.6 MCH (27.0 - 31.0 PG) 29.9 MCHC (33.0 - 37.0 G/DL) 34.5 RDW (11.5 - 14.5 %) 12.7 Plt Count (130 - 400 /CUMM) 271 MPV (7.4 - 10.4 FL) 8.0 Gran % (42.2 - 75.2 %) 57.3 Lymphocytes % (20.5 - 51.1 %) 28.6 Monocytes % (1.7 - 9.3 %) 7.7 Eosinophils % (0 - 5 %) 5.8 H Basophils % (0.0 - 2.0 %) 0.6 Absolute Granulocytes (1.4 - 6.5 /CUMM) 4.2 Absolute Lymphocytes (1.2 - 3.4 /CUMM) 2.1 Absolute Monocytes (0.10 - 0.60 /CUMM) 0.6 Absolute Eosinophils (0.0 - 0.7 /CUMM) 0.4 Absolute Basophils (0.0 - 0.2 /CUMM) 0 Other Body Source Stool Lactoferrin Pending 08/21 08/20 1521 8324 Chemistry Sodium (137 - 145 mmol/L) 139 142 Potassium (3.5 - 5.1 mmol/L) 4.1 4.6 Chloride (98 - 107 mmol/L) 109 H 105 Carbon Dioxide (22 - 30 mmol/L) 25 21 L Anion Gap (5 - 16) 5 17 H BUN (7 - 17 mg/dL) 10 14 Creatinine (0.5 - 1.0 mg/dL) 0.7 0.7 Estimated GFR (>60 ml/min) > 60 > 60 BUN/Creatinine Ratio (7 - 25 %) 14.3 20.0 Glucose (65 - 99 mg/dL) 110 H Calcium (8.4 - 10.2 mg/dL) 9.4 Total Bilirubin (0.2 - 1.3 mg/dL) 2.3 H 2.5 H Direct Bilirubin (< 0.4 mg/dL) 0 0.2 AST (14 - 36 U/L) 36 19 ALT (9 - 52 U/L) 37 16 Alkaline Phosphatase (<127 U/L) 46 70 Troponin I (< 0.11 ng/ml) < 0.01 C-React Prot High Sens (1.0 - 3.0 mg/L) 0.2 L Total Protein (6.3 - 8.2 g/dL) 5.6 L 8.0 Albumin (3.5 - 5.0 g/dL) 3.1 L 4.6 Amylase (30 - 110 U/L) 91 Lipase (23 - 300 U/L) 156 Vitamin B12 (239 - 931 pg/mL) 515 Total Beta HCG (NEGATIVE) NEGATIVE Hematology CBC w Diff NO MAN DIFF REQ NO MAN DIFF REQ WBC (4.8 - 10.8 /CUMM) 6.4 7.8 RBC (4.20 - 5.40 /CUMM) 3.95 L 4.99 Hgb (12.0 - 16.0 G/DL) 11.8 L 14.6 Hct (37 - 47 %) 34.0 L 42.7 MCV (81.0 - 99.0 FL) 86.2 85.6 MCH (27.0 - 31.0 PG) 29.9 29.3 MCHC (33.0 - 37.0 G/DL) 34.7 34.2 RDW (11.5 - 14.5 %) 12.8 12.8 Plt Count (130 - 400 /CUMM) 240 367 MPV (7.4 - 10.4 FL) 7.7 7.9 Gran % (42.2 - 75.2 %) 41.5 L 64.8 Lymphocytes % (20.5 - 51.1 %) 43.7 25.2 Monocytes % (1.7 - 9.3 %) 7.7 7.8 Eosinophils % (0 - 5 %) 6.1 H 1.2 Basophils % (0.0 - 2.0 %) 1.0 1.0 Absolute Granulocytes (1.4 - 6.5 /CUMM) 2.7 5.1 Absolute Lymphocytes (1.2 - 3.4 /CUMM) 2.8 2.0 Absolute Monocytes (0.10 - 0.60 /CUMM) 0.5 0.6 Absolute Eosinophils (0.0 - 0.7 /CUMM) 0.4 0.1 Absolute Basophils (0.0 - 0.2 /CUMM) 0.1 0.1 ESR Westergren (0 - 20 MM) 2 Toxicology Urine Opiates Screen (>2000 NG/ML) < 100 Methadone Screen (>300 NG/ML) < 40 Barbiturate Screen (>200 NG/ML) < 60 Ur Phencyclidine Scrn (>25 NG/ML) < 6.00 Amphetamines Screen (>1000 NG/ML) < 100 U Benzodiazepines Scrn (>200 NG/ML) 431 H Urine Cocaine Screen (>300 NG/ML) < 50 Urine Cannabis Screen (>50 NG/ML) < 5.00 Urines Urine Color (YEL,AMB,STR) YEL Urine Clarity (CLEAR) CLEAR Urine pH (5.0 - 8.0) 6.0 Ur Specific [place] (1.001 - 1.035) 1.015 Urine Protein (NEG,<30 MG/DL) NEG Urine Ketones (NEG) NEG Urine Nitrite (NEG) NEG Urine Bilirubin (NEG) NEG Urine Urobilinogen (0.1 - 1.0 EU/dl) 0.2 Ur Leukocyte Esterase (NEG) SMALL H Ur Microscopic SEDIMENT EXAMINED Urine RBC (0 - 5 /HPF) RARE Urine WBC (0 - 2 /HPF) 3-5 H Ur Epithelial Cells (NONE,FEW) MANY H Urine Bacteria (NEG/NONE) MANY H Urine Mucus (FEW,NONE) RARE Urine Hemoglobin (NEG) NEG Urine Glucose (N MG/DL) NEG 08/20 0646 Urines Urine Color Cancelled Urine Clarity Cancelled Urine pH Cancelled Ur Specific [place] Cancelled Urine Protein Cancelled Urine Ketones Cancelled Urine Nitrite Cancelled Urine Bilirubin Cancelled Urine Urobilinogen Cancelled Ur Leukocyte Esterase Cancelled Ur Microscopic Cancelled Urine Hemoglobin Cancelled Urine Glucose Cancelled Imaging/Other Studies: Stool negative for culture, C. difficile toxin, Yersinia, vibrio, Giardia. Pending for lactoferrin.
[2017-08-22 22:48] VITALS: BP 108/68
[2017-08-23 07:11] VITALS: BP 118/66
--- NOTE | 2017-08-23 07:15 | PN- Housestaff ---
Radha ARIAS,Iliana 08/23/17 0715: Subjective Follow-up For: Recurrent chronic diarrhea Subjective: Patient was seen and examined today. Patient reports dizziness and mild abdominal cramping after completing the golytely prep. Patient denies n/v, fever/chills, chest pain, sob, dysuria/hematuria. No acute events overnight. Review of Systems Constitutional: Reports: see HPI. Objective Last 24 Hrs of Vital Signs/I&O Vital Signs Date Time Temp Pulse Resp B/P B/P Pulse O2 O2 Flow FiO2 Mean Ox Delivery Rate 08/23 0711 98.5 86 18 118/66 98 08/22 2248 98.0 100 18 108/68 99 Room Air 08/22 1709 89 18 120/84 99 Room Air 08/22 1400 98.0 86 20 124/74 99 Room Air Intake & Output 08/23 0800 08/23 0000 08/22 1600 Intake Total 2009 610 Output Total Balance 2009 610 Intake, IV 10 10 Intake, Oral 2000 600 Number 3 2 Bowel Movements Patient 120 lb Weight Physical Exam General Appearance: Alert, Cooperative, No Acute Distress Skin: No Rashes Skin Temp/Moisture Exam: Warm/Dry Sepsis Skin Exam (color): Normal for Ethnicity HEENT: Atraumatic, Mucous Membr. moist/pink Cardiovascular: Regular Rate, Normal S1, Normal S2 Lungs: Clear to Auscultation, Normal Air Movement Abdomen: Normal Bowel Sounds, Soft, minimal tenderness to deep palpations diffusely Neurological: Normal Gait, Normal Speech, Strength at 5/5 X4 Ext, Normal Tone, Sensation Intact, Cranial Nerves 3-12 NL, Reflexes 2+ Extremities: No Clubbing, No Cyanosis, No Edema, Normal Pulses, No Tenderness/ Swelling Current Medications: Current Medications Sig/Vale Start time Last Medication Dose Route Stop Time Status Admin Acetaminophen 650 MG .STK-MED ONE 08/22 1207 DC PO 08/22 1208 Acetaminophen 650 MG Q8P PRN 08/20 1300 AC 08/22 PO 1209 Belladonna Alkaloids/ 1 TAB Q4 HRS NEEDED PRN 08/20 2200 AC 08/22 Phenobarbital PO 0901 Enoxaparin Sodium 40 MG DAILY 08/21 0900 AC 08/22 SC 0901 Ketorolac 30 MG .STK-MED ONE 08/22 1608 DC Tromethamine IM 08/22 1609 Ketorolac 30 MG Q8P PRN 08/20 1400 AC 08/22 Tromethamine IV 1609 Lorazepam 0.5 MG ONE ONE 08/22 1700 DC 08/22 PO 08/22 1701 1715 Melatonin 5 MG AT BEDTIME NEED.. 08/20 2100 AC 08/20 PO 2108 Polyethylene Glycol 1 GAL ONCE ONE 08/22 1815 DC 08/22 PO 08/22 1816 2151 Trimethobenzamide HCl 200 MG 4 TIMES/DAY PRN 08/20 1245 AC 08/22 IM 1039 Last 24 Hrs of Lab/Sammy Results Last 24 Hrs of Labs/Mics: Laboratory Tests 08/23/17 0720: Sodium Pending, Potassium Pending, Chloride Pending, Carbon Dioxide Pending, Anion Gap Pending, BUN Pending, Creatinine Pending, BUN/Creatinine Ratio Pending 08/22/17 0750: CBC w Diff NO MAN DIFF REQ, RBC 4.38, MCV 86.6, MCH 29.9, MCHC 34.5, RDW 12.7, MPV 8.0, Gran % 57.3, Lymphocytes % 28.6, Monocytes % 7.7, Eosinophils % 5.8 H, Basophils % 0.6, Absolute Granulocytes 4.2, Absolute Lymphocytes 2.1, Absolute Monocytes 0.6, Absolute Eosinophils 0.4, Absolute Basophils 0 Assessment/Plan Assessment: Patient is a 27 y/o female with history of anemia presenting this admission chief complaint of chronic diarrhea over the past 1 year without resolution. Patient this morning reported dizziness due to prep and being NPO. Orthostat negative. As patient's colonoscopy/EGD was scheduled for afternoon, IV fluids were given. Patient fiance was at bedside today. Reports this is an ongoing problem and patient has underlying anxiety currently not on medications. Patient was visibly anxious and tearful today after the colonoscopy/EGD. Was anxious to spend time away from her fiance and son. Patient's EGD/colonoscopy was negative today. Biospies were obtained and are pending. Patient thus far has been negative for infectious causes. Patient has underlying mental health concerns which may be precipitating/coinciding with GI symptoms. Further evaluation of anxiety by psychiatry has been requested. Problems: 1. Chronic diarrhea - ruled out infectious causes, colonoscopy/EGD grossly normal, biospy pending, possibly due to IBS 2. H/O Anemia Plan: Admitted to [facility] Discontinued IV fluids after colonoscopy/EGD Will resume low fiber diet tonight Follow up of biopsy outpatient Psychiatry consullt requested. Appreciate recommendations for anxiety management Continue for abdominal cramps Continue pain control with tylenol, toradol Melatonin PRN for insomnia Tigan PRN for n/v DVT PPx: lovenox, ALPS Diet: low fiber diet Code: Full code Dispo: patient seen by psych and GI, stable for discharge. Patient is anxious to go home. Will discharge today with follow up. Patient will call to make an appointment with outpatient psychiatry. Patient will follow up with her pcp and GI for results of biopsy. Patient does not have insurance. Spoke to social work and pharmacy- will substitiuate with bentyl for abdominal cramps PRN. Problem List: 1. Diarrhea 2. Anxiety disorder Pain Ratin Pain Location: abdomen Pain Goal: Pain 4 or less Pain Plan: tylenol toradol Tomorrow's Labs & Rationales: none - dc home today Becky ARIAS,Finesse 08/23/17 1527: Attending MD Review Statement Attending Statement Attending MD Statement: examined this patient, discuss w/resident/PA/MACHINE DRILLER, agreed w/resident/PA/MACHINE DRILLER, discussed with family, reviewed EMR data (avail), discussed with nursing, discussed with case mgmt, amended to note Attending Assessment/Plan: Patient seen and examined. Completed a bowel prep overnight. Still complaining of abdominal cramping. Denies nausea. Denies vomiting. On examination abdomen is to mild diffuse tenderness. No rebound or guarding. She is scheduled to undergo endoscopic evaluation today. Follow-up results of endoscopy and further recommendations from the gastroenterology service.
--- NOTE | 2017-08-23 12:50 | Proc Note Endoscopy ---
Endoscopy Procedure Procedure Date: 08/23/17 Procedure Type: EGD w/biopsy (preceding colonoscopy) Telemetry Technician: Jarvis Sarabia M.D. ASA Classification: II Indications: Abdominal pain Dyspepsia Diarrhea Heartburn Instrument: diagnostic gastroscope Meds Received: MAC Patient's Tolerance: good Complications: none Extent Reached: second part of duodenum Procedure: The patient signed informed consent for EGD and colonoscopy, and was medicated. Lidocaine pharyngeal spray was administered. Pulse oximetry, blood pressure and cardiac monitoring were performed continuously throughout the procedure. The Olympus high-definition gastroscope was inserted into the mouth and advanced to the duodenum. Retroflexion was performed within the stomach to examine the cardia. Careful examination was performed. Findings: The esophagus had normal caliber and contour. The mucosa was normal throughout. The GE junction at 39 cm was normal. There was no hiatal hernia. The stomach had normal distention and active peristalsis. The cardia was normal. There were diminished rugae. The mucosa was otherwise normal. Biopsies were obtained from body and antrum. The pyloric channel was normal. The duodenal bulb was normal. The mucosa and folds of the duodenal sweep were normal, and 4 biopsies were obtained in this area. Impression: * No esophagitis * Evidence of atrophic gastropathy * No gross enteropathy; biopsies obtained Recommendations: * Await pathology * Immediately following this EGD, the patient underwent a colonoscopy; see report CC: Kyle Terry MD,Kimberley Owusu MD,Arnol Alonso
--- NOTE | 2017-08-23 12:52 | Proc Note Colonoscopy ---
Colonoscopy Procedure Procedure Date: 08/23/17 Procedure Type: colonoscopy w/biopsy (following EGD) Gas Fitter Helper: Jarvis Sarabia M.D. ASA Classification: II Indications: Abdominal pain Diarrhea Family history of inflammatory bowel disease Instrument (Colonoscope): single channel Meds Received: MAC Patient's Tolerance: good Complications: none Extent Reached: terminal ileum Prep: good Procedure: Following the initial EGD, the patient was placed in the [place] position, and medicated. Examination of the rectum revealed small external hemorrhoids; there were no other anal or perianal lesions. The Olympus high-definition variable stiffness colonoscope was inserted through the anus and advanced to the terminal ileum. Retroflexion was performed in order to examine the rectum and ascending colon. Careful examination was performed. There was adequate withdrawal time. Findings: The rectum was normal. The mucosa, folds and vasculature from sigmoid to cecum were normal. There was no gross colitis. The terminal ileum was normal. Biopsies were obtained from her rectum, left colon, transverse colon, right colon and terminal ileum. Impression: * Normal colonoscopy/ileoscopy; biopsies obtained Recommendations: * Await pathology * Advance to regular diet * Continue anticholinergic therapy * Psychiatry consultation CC: Kyle Terry MD,Neftali; Umer ARIAS,Arnol Alonso
[2017-08-23 15:00] VITALS: BP 112/78
[2017-08-23] MEDS ORDERED: DONNATAL TABL16.2 MG PO (15:49)
--- NOTE | 2017-08-23 15:54 | Patient Discharge Instructions ---
Discharge Instructions General Discharge Information You were seen/treated for: Diarrhea Anxiety Special Instructions: [facility] [address] [facility] [phone] Please follow up as discussed with psychiatry. Please follow up with your primary care physician within 1 week of discharge. Please follow up with GI for biopsy results. Diet Continue normal diet: No Recommended Diet: Low fiber diet Activity Full Activity/No Limits: No Activity Self Limited: Yes Acute Coronary Syndrome Inclusion Criteria At DC or during hospital stay patient has or had the following: ACS DIAGNOSIS No Discharge Core Measures Meds if any: Prescribed or Continued at Discharge Meds if any: NOT Prescribed or Continued at Discharge Congestive Heart Failure Inclusion Criteria At DC or during hospital stay patient has or had the following: CHF DIAGNOSIS No Discharge Core Measures Meds if any: Prescribed or Continued at Discharge Meds if any: NOT Prescribed or Continued at Discharge Cerebrovascular accident Inclusion Criteria At DC or during hospital stay patient has or had the following: CVA/TIA Diagnosis No Discharge Core Measures Meds if any: Prescribed or Continued at Discharge Meds if any: NOT Prescribed or Continued at Discharge Venous thromboembolism Inclusion Criteria VTE Diagnosis No VTE Type NONE VTE Confirmed by (Test) NONE Discharge Core Measures - Per Current guidelines, there needs to be overlap - treatment for the first 5 days of Warfarin therapy. - If discharged on Warfarin prior to 5 days of - overlap therapy, the patient will need to be - assessed for post discharge needs including - *Post discharge parental anticoagulation - *Warfarin and/or parental anticoagulation education - *Follow up date to check INR post discharge At least 5 days overlap therapy as Inpatient Yes Meds if any: Prescribed or Continued at Discharge Note: Overlap Therapy is Warfarin and Anticoagulant Meds if any: NOT Prescribed or Continued at Discharge
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
[2017-08-23] MEDS ORDERED: DICYCLOMINE HCL10 M1 PO ×2 (16:26→16:33)
--- NOTE | 2017-08-23 19:09 | Discharge Summary ---
Visit Information Visit Dates Admission Date: 08/22/17 Discharge Date: 08/23/17 Hospital Course Course Attending Physician: Finesse Pena MD Primary Care Physician: Arnol Owusu MD Hospital Course: Patient is a 27-year-old female with past medical history of anemia and history of mental health issues not on any medications presenting this admission with chief complaint of recurrent diarrhea over the past 6-12 months with recent watery diarrhea over the past 2 weeks which worsened one day prior to admission after having steak and hashbrowns. Patient reported black stools initially along with abdominal cramps and minimal relief with Imodium, Pepto-Bismol and ibuprofen. Patient's family history is significant for Crohn's disease. Patient is not currently on any medications prior to this admission. Patient was evaluated for possible causes of her diarrhea including infectious etiologies which were ruled out with abdominal CT and stool studies. Patient remained afebrile with no leukocytosis. Patient was evaluated by GI and due to significant family history of Crohn's, patient was prepped for an EGD and colonoscopy which were grossly normal. Multiple biopsies were taken. Patient had a stool lactoferrin which was pending prior to discharge. The test came back positive indicating a possible inflammatory process. During evaluation patient was notably anxious and appears to be under significant stress. Patient has a history of anxiety and trauma in the past. This led to evaluation Allergies: Coded Allergies: bee pollen (Severe, ANAPHYLAXIS 09/17/15) kiwi (Severe, ANAPHYLAXIS 09/17/15) Sulfa (Sulfonamide Antibiotics) (Intermediate, DIARRHEA 09/17/15) Discharge Instructions Medications at Discharge Discharge Medications: Continue taking these medications: Cyanocobalamin (Vitamin B-12) (B-12) 1,000 MCG TABLET 1 Tablet ORAL DAILY Comments: NOT GIVEN IN HOSPITAL Start taking the following new medications: Dicyclomine HCl (Dicyclomine HCl) 10 MG CAPSULE 1 Capsule ORAL EVERY SIX HOURS NEEDED as needed for STOMACH CRAMPS Qty = 28 No Refills
== END 2017-08-23 17:35 | DRG 249 ==
LOC: ERH 06:11 → ERHI 10:16 → 2NB 10:16 → ENRESERV 12:36 → ENTRNSPT 12:52 → EDTRNSPTSTS 13:07 → EDTRNSPT 13:07 → 2NB 13:13 → CMPTRNSPT 13:28 → 2NB 08-22 08:12
PROVIDERS: Internal Medicine; Pediatrics
PROC: 0DBP8ZX Excision of Rectum, Via Natural or Artificial Opening Endoscopic, Diagnostic (ICD-10-PCS; principal; 2017-08-23)
PROC: 0DBF8ZX Excision of Right Large Intestine, Via Natural or Artificial Opening Endoscopic, Diagnostic (ICD-10-PCS; principal; 2017-08-23)
PROC: 0DBB8ZX Excision of Ileum, Via Natural or Artificial Opening Endoscopic, Diagnostic (ICD-10-PCS; principal; 2017-08-23)
PROC: 0DB68ZX Excision of Stomach, Via Natural or Artificial Opening Endoscopic, Diagnostic (ICD-10-PCS; principal; 2017-08-23)
PROC: 0DBG8ZX Excision of Left Large Intestine, Via Natural or Artificial Opening Endoscopic, Diagnostic (ICD-10-PCS; principal; 2017-08-23)
DX: K52.9 Noninfective gastroenteritis and colitis, unspecified (principal); R10.9 Unspecified abdominal pain; Z88.2 Allergy status to sulfonamides; D64.9 Anemia, unspecified; F41.9 Anxiety disorder, unspecified
CPT/HCPCS: 2NBP; 36415; 36592; 74176; 80307; 81001; 82436; 83630; 87015; 87040; 87045; 87328; 87329; 87899; 87899-59; 93005; 93010; 96374; 96375; 99291; J0131; J1650; J1885; J2405; J2765; J3250